=== PATIENT | male | born 1985 | race Caucasian/White ===

== ENCOUNTER 2020-10-06 14:04 | Emergency (ER) | payer SELFPAY ==
[~2020-10-06] VITALS: Ht 198.1 cm; Wt 90.9 kg
[2020-10-06 15:35] LABS: HEMATOCRIT 44.7 % (39.0-50.0); HEMOGLOBIN 14.7 g/dl (14.0-18.0); IMMATURE GRANULOCYTES 0.3 % (0.0-5.0); MEAN CELL VOLUME 92.5 fL CALC (80.0-100.0); MEAN CORPUSCULAR HGB 30.4 pG CALC (26.0-32.0); MEAN CORPUSCULAR HGB CONC 32.9 g/dL CAL (32.0-36.0); NEUT# 2.59 thou/uL (1.82-7.42); RED BLOOD COUNT 4.83 mill/uL (4.70-6.10); RED CELL DISTRI WIDTH 12.1 % (11.5-15.5)
[2020-10-06 15:54] LABS: ALBUMIN 4.7 g/dL (3.2-5.0); ALKALINE PHOSPHATASE 43 u/l (38-126); ANION GAP 12 (6-22 (CALC)); BILIRUBIN, TOTAL 1.4 mg/dL (0.0-1.4); BUN 11 mg/dL (9-20); BUN/CREATININE RATIO 14 (12-20 (CALC)); CARBON DIOXIDE 31 mmol/l (22-30); CHLORIDE 96 mmol/l (95-108); CREATININE 0.8 mg/dL (0.7-1.3); GFR > 60 ML/MIN (>=60 (CALC)); GFR FOR AFR.AMER. > 60 ML/MIN (>=60 (CALC)); POTASSIUM 4.6 mmol/l (3.5-5.1); SGOT/AST 25 u/l (17-59); SODIUM 135 mmol/l (137-146); TOTAL PROTEIN 7.5 g/dL (6.3-8.2)
[2020-10-06] MEDS ORDERED: FAMCICLOVIR500 MG PO (17:02)
[2020-10-06] MEDS ORDERED: KEFLEX500 MG PO (17:02)
[2020-10-06] MEDS ORDERED: MEDDOSEPAK PO (17:02)
[2020-10-06 17:07] VITALS: BP 136/85
== END 2020-10-06 17:16 | disposition home or self-care (01) | DRG 607 ==
LOC: ED 14:04
DX: S00.461A Insect bite (nonvenomous) of right ear, initial encounter (principal); L08.9 Local infection of the skin and subcutaneous tissue, unspecified; G51.0 Bell's palsy; W57.XXXA Bitten or stung by nonvenomous insect and other nonvenomous arthropods, initial encounter